=== PATIENT | male | born 1955 | race Caucasian/White ===

== ENCOUNTER 2017-07-04 11:32 | Inpatient (IN) | payer BC ==
[2017-07-04 11:50] LABS: Hematocrit 51.6 % (42.0-52.0); Mean Platelet Volume 8.2 fL (7.4-10.4); Red Blood Cell (RBC) Count 4.92 mill/uL (4.70-6.10); White Blood Cell (WBC) Count 5.2 thou/uL (4.8-10.8)
[2017-07-04 11:56] LABS: PTT 29.3 SEC (22.9-36.1); Prothrombin Time 15.2 SEC (12.0-14.7)
[2017-07-04 12:01] LABS: ALT (SGPT) 37 U/L (8-55); AST (SGOT) 27 U/L (5-34); Alkaline Phosphatase 92 U/L (40-150); Anion Gap 10 mmol/L (10-20); BUN (Urea Nitrogen) 14 mg/dL (8.4-25.7); Bilirubin, Total 1.5 mg/dL (0.2-1.2); Calc. Creatinine Clearance 0 mL/min (70-130); Calcium 8.6 mg/dL (7.8-10.44); Carbon Dioxide 20 mmol/L (22-29); Chloride 110 mmol/L (98-107); Estimated GFR-MDRD 78; Globulin 2.6 g/dL (2.4-3.5); Protein, Total 6.3 g/dL (6.0-8.3)
[2017-07-04 12:06] LABS: Troponin I Less than 0.010 ng/mL (< 0.028)
[2017-07-04 12:09] LABS: #Eosinphils 0.1 thou/uL (0.0-0.7); #Lymphocytes 1.6 thou/uL (1.20-3.40); #Monocytes 0.6 thou/uL (0.11-0.59); #Neutrophils 2.8 thou/uL (1.40-6.50); %Basophils 0.7 % (0.0-1.0); %Eosinophils 2.7 % (0.0-10.0); %Lymphocytes 30.6 % (21.0-51.0)
--- NOTE | 2017-07-04 12:43 | CT ---
CT HEAD NONCONTRAST: INDICATION: Weakness. Emergency exam. FINDINGS: There is no intracranial hemorrhage, mass, midline shift, or ventriculomegaly. IMPRESSION: No acute intracranial hemorrhage or mass effect. POS: JULIOH
[2017-07-04] MEDS ORDERED: Ondansetron ODT 4 MG TAB PO PRN (14:49)
[2017-07-04] MEDS ORDERED: Furosemide 20 MG/2 ML VIAL SLOW IVP SCH ×2 (15:00→15:15)
[2017-07-04 15:33] LABS: Magnesium 1.9 mg/dL (1.6-2.6); Phosphorus 2.6 mg/dL (2.3-4.7)
[2017-07-04 16:00] LABS: Troponin I Less than 0.010 ng/mL (< 0.028)
[2017-07-04 16:22] VITALS: BMI 30.1
--- NOTE | 2017-07-04 16:49 | RAD ---
PA AND LATERAL CHEST: 07/04/17 HISTORY: Dyspnea. New onset atrial fibrillation. COMPARISON: 07/28/15 exam. The heart size is borderline to minimally enlarged. There is some bibasilar interstitial lung change s seen slightly more confluent in the right base. IMPRESSION: Minimal cardiomegaly with some increased interstitial markings which are predominantly within the ba ses and greater in the right base. Although this could indicate some element of edema, it may repres ent atelectasis possibly with a developing infiltrate in the right lung base. POS: JULIOH
--- NOTE | 2017-07-04 17:49 | CT ---
CT ANGIO OF NECK PERFORMED WITH INTRAVENOUS CONTRAST ENHANCEMENT WITH 3D RECONSTRUCTIONS: 07/04/17 HISTORY: Slurred speech. COMPARISON: CT of the brain performed earlier today. There are bilateral pleural effusions identified. The lung apices are clear. thyroid gland is somew hat small. There is a questionable filling defect within the left jugular vein. This may be artifact ual related to uneven mixing which I would favor but if thrombus is suspected, ultrasound may be hel pful in assessment. On the right side, right common carotid artery, internal and external carotid arteries are unremarka ble. The internal carotid arteries are very tortuous in its course. No signs of any significant sten osis. The left side also shows tortuosity of internal and external carotid arteries, but no evidence for s tenosis. No signs of dissection. The vertebral arteries are codominant. Parotid and submandibular gland regions are unremarkable. A r etention cyst is noted within the left maxillary sinus. No jugular chain adenopathy is seen. IMPRESSION: 1. No evidence of any significant stenosis of either internal carotid artery. 2. Bilateral pleural effusions. 3. Questionable filling defect versus uneven mixing in the left internal jugular vein. If indic ated, ultrasound would be helpful in assessment for the possibility that this represents some throm bus. POS: [facility]
--- NOTE | 2017-07-04 18:22 | CT ---
CT ANGIO OF BRAIN PERFORMED WITH INTRAVENOUS CONTRAST ENHANCEMENT WITH 3D RECONSTRUCTIONS: 07/04/17 HISTORY: Patient has slurred speech. COMPARISON: CT angio of the neck done earlier as well as CT of the brain. Technically a satisfactory examination was obtained. The vertebral arteries are codominant. They for m a normal basilar artery and the posterior cerebral arteries are unremarkable. Anterior and middle cerebral arteries and their branches show no areas of stenosis or findings of th rombus. IMPRESSION: Unremarkable CT angio of head. POS: SAMANTHA
[2017-07-04 19:22] LABS: Troponin I Less than 0.010 ng/mL (< 0.028)
--- NOTE | 2017-07-04 21:01 | HP-2 ---
CODE STATUS: DNI. PRIMARY CARE PHYSICIAN: Dr. Batista. ATTENDING: Dr. Anthony. RESIDENT: Alpesh Abernathy M.D. HISTORIAN: Patient and . SPECIALIST: Patient's diamond die polisher is Dr. House in [place]. CHIEF COMPLAINT: Slurred speech, unequal pupils and weakness. HISTORY OF PRESENT ILLNESS: Mr. Dwight Dumont is a 61-year-old male with past medical history of AML, diagnosed in 2014, status post stem cell transplant and recent past medical history of atrial fibrillation diagnosed 6 days ago. The patient presents after waking up this morning with bilateral leg weakness and blurry vision. His who witnessed the episode stated that his eyes were moving back and forth in a random pattern and she knows that one pupil is bigger than the other, and that he was slurring his words. He denies any unilateral weakness in his extremities and she denied any facial droop. This lasted about 20 minutes and they called the ambulance and it was resolved before they got there. He states that for the last few weeks he has also had some chest discomfort and he saw a diamond die polisher on Thursday and he was diagnosed with atrial fibrillation and started on metoprolol and Eliquis. He has had shortness of breath for the last 3 days, paroxysmal nocturnal dyspnea and orthopnea as well. He has not had any lower extremity edema. PAST MEDICAL HISTORY: 1. 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 2. Atrial fibrillation. PAST SURGICAL HISTORY: 1. Right knee arthroscopy. 2. Left forearm fracture repair. 3. Tendon repair of the 5th digit. 4. Bone marrow transplant in 2014. ALLERGIES: No known drug allergies. MEDICATIONS: 1. Eliquis 5 mg b.i.d. 2. Metoprolol 25 mg b.i.d. 3. Unknown AML drug, will need to Med Rec. FAMILY HISTORY: Breast cancer on the maternal side and lung cancer on paternal side. SOCIAL HISTORY: Denies smoking and drug use and endorses alcohol use socially. REVIEW OF SYSTEMS: General: Positive for night sweats and fatigue. Denies fevers, chills, weight, appetite, sleep change. Eyes: Positive for blurry vision this morning. Denies eye pain. ENT: Positive for seasonal allergies. Denies any recent nasal congestion, rhinorrhea, sore throat. Respiratory: Positive for shortness of breath and exercise intolerance. Denies any cough, congestion. Gastrointestinal: Positive for nausea and vomiting. Denies diarrhea, constipation, abdominal pain , GI bleeding. Genitourinary: Denies incontinence, dysuria, polyuria, discharge. Skin: Denies rashes, lesions, jaundice, or itching. Musculoskeletal: Denies pain, tenderness, stiffness, swelling or arthritis. Neurologic: Positive for weakness. Denies numbness, syncope or seizures. Psychiatric: Denies any anxiety or depression. PHYSICAL EXAMINATION: VITAL SIGNS: Blood pressure 130/96, pulse 99, respiratory rate 16, T-max 97.6, pulse ox 96% on room air. Current weight is 102 kilograms. GENERAL: The patient is alert and oriented x4, no acute distress, well- developed, well-nourished, and appropriately interactive. EYES: The right pupil was slightly smaller than the left pupil. Both were reactive to light and accommodation. Extraocular muscles intact. No nystagmus. Conjunctivae within normal limits. ENT: Tympanic membranes are pearly ruffin without bulging or erythema. Nasal mucosa and oropharynx within normal limits. NECK: Supple, without lymphadenopathy or thyromegaly. CARDIOVASCULAR: Irregularly irregular rhythm with a rate of 99, no murmurs or gallops. Radial pulses and pedal pulses are equal and present. RESPIRATORY: Normal effort, no retractions. There are bibasilar rales present. SKIN: Warm and dry without cyanosis or lesions. ABDOMEN: Soft, nontender, bowel sounds x4. No masses or distention. EXTREMITIES: No clubbing, cyanosis or edema. MUSCULOSKELETAL: Structure and tone within normal limit. Muscle strength 5/5 in the upper and lower extremities. Full range of motion. NEUROLOGIC: No focal deficits. Sensation within normal limits. Cranial nerves II through XII intact. PSYCHIATRIC: Appropriate. LABORATORY DATA AND IMAGING: White blood cell count 5.2, hemoglobin 16.7, hematocrit 51, MCV 105, platelets 119. Sodium 136, potassium 4.0, chloride 110 , bicarbonate 20, BUN 14, creatinine 0.98, glucose 129, calcium 8.6, total protein 6.3, albumin 3.7, total bilirubin 1.5, AST 27, ALT 37, alkaline phosphatase 92. PT 15.2, PTT 29.31, INR 1.2. CK-MB 3.3, troponin less than 0.01. BNP was 688. EKG showed atrial fibrillation. Brain CT showed no acute intracranial hemorrhage or mass effect. ASSESSMENT AND PLAN: A 61-year-old male with past medical history of acute myelogenous leukemia who is in remission, who was recently diagnosed with atrial fibrillation who presented with blurry vision, weakness and slurring words. 1. Transient ischemic attack suspected. Admit to inpatient stroke, symptoms have resolved completely. No deficit. CT of the brain showed no intracranial findings. Order brain MRI, CT angiogram of the head and neck, echo, fasting lipid panel, BMP, CBC. Continue aspirin and Eliquis. Monitor symptoms. Check orthostatics. Consider consulting Neurology. 2. Possible new onset congestive heart failure: In the setting of newly diagnosed atrial fibrillation. Check echo and chest x-ray. Hold home metoprolol. BNP was 688. Troponins were negative. Cardiology has been consulted. 3. Acute myelogenous leukemia: In remission, status post stem cell transplant in 2014. Continue home medications. We will need to Med Rec. 4. Activity: ad yash. 5. Atrial fibrillation, rate controlled, new onset. Continue home medications , check TSH, magnesium, and phosphatase. 6. Deep venous thrombosis prophylaxis. Home Eliquis and sequential compression devices. 7. Diet: Heart healthy. 8. Code status, DNI. Disposition and length of hospital stay, 2 days. Symptomatic medication will be provided. History and physical exam as well as management discussed with Dr. Anthony. Patient seen and evaluated by me. I agree with reich portions of this history and physical. I left an additional note in the chart. The patient had a TIA. He has new A Fib and was recently started on metoprolol and Eliquis. 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 He has an echo pending and a cardiology consult. We are also checking an MRI/MRA. Jeffrey HELMS
[2017-07-04] MEDS: Apixaban 5 MG TAB PO SCH (21:58)
--- NOTE | 2017-07-04 22:05 | CON ---
DATE OF SERVICE: 07/04/2017 CARDIOLOGY CONSULTATION REASON FOR CONSULTATION: Stroke and atrial fibrillation. HISTORY OF PRESENT ILLNESS: Mr. Dumont is a very pleasant 61-year-old white gentleman, who comes to the hospital for evaluation of weakness, slurred speech and headache. He was found to have an equal pupils and high likelihood of having an acute CVA, so he was admitted. His blood pressure on admis yogi was 184/125, so nitro paste was administered and his blood pressure starts to get much better. He also was complaining of headache, vomiting and some vision changes as well as dizziness. He has also been having double vision and ringing in the ear. He was diagnosed with atrial fibrillation a bout 2 weeks ago. He was found to be in atrial fibrillation with RVR by his primary care physician, Dr. Batista. He noticed he was found to be in RVR, heart rate in the 140s, so he was seen by Cardiol linn, Dr. House and he elected to rate control with Toprol XL and he also was started on Eliquis f or stroke prophylaxis. His heart rate did come down to the 90s-100s and he has been tolerating the Eliquis without issues. He has not been missed doses and he is taking it twice a day. Currently on my evaluation, his symptoms are much better. Per 's report, he tells me that his speech is pre tty much back to normal. He is not having any more dizziness, double vision or ringing on the ear, no other issues. He is not complaining of any weakness either. PAST MEDICAL HISTORY: 1. Hypertension. 2. Recent diagnosis of atrial fibrillation. 3. 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 He is on a research protocol down in [facility]. 4. Gout. OUTPATIENT MEDICATIONS: Include: 1. Tribenzor 40/10/25 mg a day. 2. Indomethacin p.r.n. 3. Allopurinol 300 mg a day. 4. Cefotaxime. 5. Noxafil 100 mg 3 times a day. 6. Eliquis 5 mg b.i.d. 7. Metoprolol succinate 200 mg a day. 8. Crenolanib as his AML investigational therapy done at [facility]. ALLERGIES: No known drug allergies. FAMILY HISTORY: No early coronary artery disease. His son did have atrial fibrillation at the age of 18 and recently had an ablation. SOCIAL HISTORY: No alcohol, tobacco or drugs. PAST SURGICAL HISTORY: 1. Right knee arthroscopy. 2. Lipoma removal. 3. Right forearm surgery. 4. Right little finger surgery. 5. Right arm PICC line. REVIEW OF SYSTEMS: A 12-point review of systems was done and is all negative unless stated in the h istory of present illness. PHYSICAL EXAMINATION: VITAL SIGNS: Temperature 97.9, pulse 94, respiration rate 18, satting 95% on room air, blood pressu re 121/82. He is not orthostatic. GENERAL: Awake, alert, oriented x3, in no distress. HEENT: Normocephalic, atraumatic. NECK: Supple. LUNGS: Clear. CARDIOVASCULAR: S1, S2, no S3 or S4. Irregularly irregular. Heart rate in the 90s. No murmurs. ABDOMEN: Soft, positive bowel sounds. EXTREMITIES: No edema. SKIN: Warm and dry. LABORATORY WORK: Reviewed. CBC: White count of 5, hemoglobin of 16, hematocrit 51, platelet count of 119. Coags: INR of 1.2. Chemistry showed chloride 110, carbon dioxide of 20, normal sodium an d potassium. BUN and creatinine are normal, GFR 78, total bilirubin was 1.5 with normal AST, ALT an d alkaline phosphatase. BNP was 688. Troponin has been negative x3. TSH and free T4 are normal. Albumin of 2.6. CT angiogram of the head and neck are unremarkable. CT of the brain noncontrast showed no evidence of hemorrhage, no acute intracranial hemorrhage or ma ss effect. ASSESSMENT AND PLAN: 1. Acute cerebrovascular accident/transient ischemic attack. 2. Atrial fibrillation with rapid ventricular response. 3. Acute myeloid leukemia in remission on experimental drug crenolanib for AML; however, this drug has been marked for sometime now. 4. Hypertension. PLAN: 1. MRI of the brain awaiting to see Neurology. If Neurology agrees that this is a stroke and not c omplicated migraine. We will plan on continuing full anticoagulation. 2. As far as the atrial fibrillation is concerned if he is able to tolerate the Eliquis after the s troke. We will plan on doing a BEBETO cardioversion in the near future, not at this time given his rec ent stroke. We would wait at least a week before doing this. We will get an echocardiogram to asse ss LV function and valvular structures. 3. We will continue rate control for now. At this time, I am not clear if his experimental medicat ion would be a cautious of atrial fibrillation, there is certainly others like Nexavar that are in t he same family of medications that have the side effect of atrial fibrillation. We will try to get a hold of his hematology oncologist, Dr. Nayan Washington from [facility] and see if they have any e xperience in atrial fibrillation with this medication. He may need to be off of this. Thank you for letting us participate in the care of your patient. We will continue to follow.
[2017-07-05 05:09] LABS: #Eosinphils 0.1 thou/uL (0.0-0.7); #Lymphocytes 1.5 thou/uL (1.20-3.40); #Monocytes 0.6 thou/uL (0.11-0.59); #Neutrophils 2.3 thou/uL (1.40-6.50); %Basophils 0.5 % (0.0-1.0); %Eosinophils 3.1 % (0.0-10.0); %Monocytes 12.6 % (0.0-10.0); Hematocrit 48.4 % (42.0-52.0); Mean Platelet Volume 8.9 fL (7.4-10.4); Red Blood Cell (RBC) Count 4.62 mill/uL (4.70-6.10); White Blood Cell (WBC) Count 4.5 thou/uL (4.8-10.8)
[2017-07-05 05:18] LABS: Anion Gap 8 mmol/L (10-20); BUN (Urea Nitrogen) 17 mg/dL (8.4-25.7); Calc. Creatinine Clearance 88 mL/min (70-130); Calcium 8.3 mg/dL (7.8-10.44); Carbon Dioxide 29 mmol/L (22-29); Chloride 105 mmol/L (98-107); Cholesterol 76 mg/dl (< 200 Desired); Estimated GFR-MDRD 59; LDL Cholesterol, Calculated 41 mg/dL
--- NOTE | 2017-07-05 06:21 | PDOC.FM ---
- Subjective Subjective: Patient doing well this morning. Has continued to be asymptomatic, however his Right pupil is slightly larger than his left. He denies any weakness or deficits. States he is feeling well. - Objective MAR Reviewed: Yes Vital Signs & Weight: Vital Signs (12 hours) Temp Pulse Resp BP Pulse Ox 07/05/17 04:00 98.1 F 67 14 121/86 97 07/04/17 23:57 98.5 F 92 18 128/94 H 95 07/04/17 20:05 98.5 F 92 18 95 07/04/17 19:59 97.9 F 94 18 121/82 95 Weight Weight 97.522 kg I&O: 07/03/17 07/04/17 07/05/17 06:59 06:59 06:59 Intake Total 300 Balance 300 Result Diagrams: 07/05/17 04:15 07/05/17 04:15 Radiology Reviewed by me: Yes <Alpesh Abernathy - Last Filed: 07/05/17 07:49> - Objective Vital Signs & Weight: Vital Signs (12 hours) Temp Pulse Resp BP BP Pulse Ox 07/05/17 08:25 97.9 F 64 24 H 07/05/17 07:39 97.9 F 64 24 H 126/102 H 97 07/05/17 04:00 98.1 F 67 14 121/86 97 07/04/17 23:57 98.5 F 92 18 128/94 H 95 Weight Weight 215 lb I&O: 07/04/17 07/05/17 07/06/17 06:59 06:59 06:59 Intake Total 300 Balance 300 Result Diagrams: 07/05/17 04:15 07/05/17 04:15 <William Anthony - Last Filed: 07/05/17 10:07> Phys Exam - Physical Examination Constitutional: NAD HEENT: moist MMs, sclera anicteric Neck: no JVD, full ROM Respiratory: no wheezing, no rales, no rhonchi, clear to auscultation bilateral Cardiovascular: RRR, no significant murmur, no rub Gastrointestinal: soft, non-tender, no distention Musculoskeletal: no edema, pulses present Neurological: non-focal, normal sensation, moves all 4 limbs Psychiatric: normal affect, A&O x 3 <Alpesh Abernathy - Last Filed: 07/05/17 07:49> Dx/Plan (1) Transient ischemic attack Status: Acute (2) Atrial fibrillation with RVR Code(s): I48.91 - UNSPECIFIED ATRIAL FIBRILLATION Status: Acute (3) Hypertension Code(s): I10 - ESSENTIAL (PRIMARY) HYPERTENSION Status: Acute (4) AML (acute myelogenous leukemia) Code(s): C92.00 - ACUTE MYELOBLASTIC LEUKEMIA, NOT HAVING ACHIEVED REMISSION Status: Chronic - Plan Plan: 61 yo with PMH of AML, in remission on Crenolanib, who awoke morning of 07/05 with b/l leg weakness, unable to support self, slurring words, double vision Symptoms resolved within about 20 minutes. Recently diagnosed with A fib early that week, started on Eliquis and Metoprolol. Also had developed PND, orthopnea, and increased MCDONOUGH over last 3 days. No LE edema. 1) TIA: suspected -no deficits at this time, slightly unequal pupils on admission -CT brain negative, CTA of head and neck negative -Brain MRI pending, TTE pending -continuing Eliquis at this time -continue to monitor symptoms and VSs closely -consult neuro if brain MRI has any findings 2) Atrial Fibrillation: Currently rate controlled -Continue eliquis and metoprolol -Cardiology consulted -Echo pending to evaluate LV function and valvular structures -unsure if a fib could be related to crenolanib 3) HTN: continue home meds -monitoring VSs <Alpesh Abernathy - Last Filed: 07/05/17 07:49> Attending Addendum - Attending Addendum I personally evaluated the patient and discussed the management with Dr. Abernathy I agree with the History, Examination, Assessment and Plan documented above. <William Anthony - Last Filed: 07/05/17 10:07>
[2017-07-05] MEDS ORDERED: Metoprolol Tartrate 25 MG TAB PO SCH (09:00)
[2017-07-05] MEDS: Apixaban 5 MG TAB PO SCH (09:31)
[2017-07-05] MEDS: [UNRECOGNIZED DRUG - OTHER] PO SCH ×2 (09:38→14:04)
--- NOTE | 2017-07-05 11:52 | MRI ---
BRAIN MRI: CLINICAL HISTORY: Weakness and stroke, TIA. FINDINGS: There is multifocal restriction involving the left cerebellar hemisphere as well as the cerebellar v ermis compatible with multifocal acute infarctions. No mass effect, midline shift, or ventriculomeg kera. There is mild chronic microvascular ischemic disease. Prominent [id number] retention cyst is p resent within the left maxillary sinus partially imaged. No evidence of intracranial hemorrhage. IMPRESSION: Multifocal acute infarct involving the left cerebral hemisphere and cerebellar vermis, in a predomin ant superior cerebellar artery distribution. POS: SAMANTHA
--- NOTE | 2017-07-05 14:00 | PDOC.EVN ---
Event Note - Event Note Event Note: Discussed MRI results with Dr. Parra who suggested to continue baby ASA for 1 month, and reassess at that time along with continuing Eliquis exterminator for a- fib.
--- NOTE | 2017-07-05 15:20 | CON ---
DATE OF CONSULTATION: 07/05/2017 NEUROLOGY CONSULTATION CONSULTING PHYSICIAN: [facility]. IMPRESSION: 1. Vertebrobasilar transient ischemic attack. 2. History of acute myeloid leukemia with stem cell transplant. 3. Atrial fibrillation. PLAN: 1. Continue Eliquis. 2. Add aspirin 81 mg per day for the next 6 months. 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 He has recently undergone stem cell transpl ant for treatment of acute myelogenous leukemia. He recently started experiencing some fatigue and shortness of breath and was found to be in atrial fibrillation. He was started on Eliquis about 5 d ays ago. He was sitting in his chair when he started to feel strangely. He started experiencing so me extremely loud tinnitus in the right ear. This was associated with some headache in the opposite side of the head and then feeling of an inability to get his balance and stand himself up. His wif kristin noted that he was having some pretty prominent nystagmus. His speech became a bit slurred. An am bulance was called and he was brought to the emergency room, his symptoms resolved in about an hour and 45 minutes. He never had anything like this before. His CT angio of the head was unremarkable. He has not had any recurrent symptoms. PAST MEDICAL HISTORY: As listed above. ALLERGIES: None. SOCIAL HISTORY: No tobacco or alcohol use. FAMILY HISTORY: Noncontributory. REVIEW OF SYSTEMS: Unremarkable. PHYSICAL EXAMINATION: VITAL SIGNS: Blood pressure was 126/102, pulse 64, respirations 24, temperature 97.9. HEENT: Pupils equal and reactive. Conjunctivae clear. NEUROLOGIC: He is alert and appropriate. His speech is fluent and clear. Cranial nerves are inta ct and motor exam did not show any lateralized deficits. Sensation is intact. He could stand and w alk independently. LABORATORY STUDIES: Unremarkable CBC and coags. Chemistry panel was within normal limits. Total c holesterol was 76, LDL of 41 and HDL of 21. Thyroid levels were normal. SUMMARY: This is a middle-aged man, who had transient deficits consistent with vertebrobasilar insu fficiency. Unfortunately, his symptoms have resolved and may not show any visible sign of injury on MRI. Given that he had been on Eliquis for 4 days. I would keep him on some aspirin for the short term to reduce his risk of blood pressure, he will need to be monitored and addressed as necessary.
[2017-07-05 16:07] VITALS: BP 141/97; TEMP 98.3
--- NOTE | 2017-07-05 18:16 | PDOC.CTH ---
Cardiology Progress Note - Subjective He is doing well. He is back to normal. - Objective Vital Signs Temp Pulse Resp BP Pulse Ox 07/05/17 15:55 98.3 F 82 16 141/97 H 98 07/05/17 11:50 97.9 F 78 16 129/102 H 98 07/05/17 08:25 97.9 F 64 24 H 07/05/17 07:39 97.9 F 64 24 H 126/102 H 97 Weight 215 lb 07/04/17 07/05/17 07/06/17 06:59 06:59 06:59 Intake Total 300 Balance 300 - Physical Examination General/Neuro: alert & oriented x3, NAD Neck: no JVD present Lungs: unlabored respirations Heart: other: (irrge) Abdomen: NT/ND Extremities: other: (no edema.) - Telemetry Telemetry Rhythm: Afib HR 80's. - Labs Result Diagrams: 07/05/17 04:15 07/05/17 04:15 Troponin/CKMB CK-MB (CK-2) 3.7 ng/mL (0-6.6) 07/04/17 18:45 Troponin I Less than 0.010 ng/mL (< 0.028) 07/04/17 18:45 - Assessment/Plan 1. Afib, rate controlled 2. Acute CVA, thromboembolic 3. AML in remission on Crenolanib research study out of [place] PLAN: - Continue Patricia ANDERSON for rate control. - Will plan on seeing him back in 2 weeks and if still in afib will plan a BEBETO cardioversion at that time. - If he recurs with a repeat stroke he will need a candidate for Watchman or Lariat device.
--- NOTE | 2017-07-06 00:43 | DIS-2 ---
DATE OF ADMISSION: 07/04/2017 DATE OF DISCHARGE: 07/05/2017 RESIDENT: Alpesh Abernathy MD ADMITTING ATTENDING: William Anthony MD DISCHARGE ATTENDING: William Anthony MD CONSULTATIONS: 1. Cardiology on 07/04/2017, Hussein Diana MD 2. Neurology on 07/05/2017, Charanjit Parra MD IMAGIN. Brain CT on 07/04/2017. Impression: No acute intracranial hemorrhage or mass effect. 2. CT angiography of the neck with and without contrast on 07/04/2017. Impression: No evidence of any significant stenosis of either internal carotid artery, bilateral pleural effusions. 3. CT angio with contrast of the [place] of the head: Unremarkable CT angio of the head. 4. Brain MRI on 07/05/2017. 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 DISCHARGE MEDICATIONS: 1. Simvastatin 40 mg p.o. at bedtime. 2. Aspirin 81 mg p.o. daily and resume home medications. 3. Metoprolol tartrate 25 mg p.o. b.i.d. 4. Eliquis 5 mg p.o. b.i.d. 5. As well as multivitamins. DISCONTINUED MEDICATION: Lasix 20 mg slow IV push. HISTORY OF PRESENT ILLNESS/HOSPITAL COURSE: Mr. Dwight Dumont is a 61-year-old male with a past medic al history of acute myelogenous leukemia diagnosed in 2014, status post stem cell transplant and a r ecent past medical history of atrial fibrillation diagnosed 6 days ago, where he was started on Eliq uis and metoprolol. The patient states that after waking up on the morning of 07/04/2017, he had bl urry vision and bilateral leg weakness. His , who witnessed the episode, noticed that his eyes were moving back and forth in a random pattern. She also noticed that one pupil, the right, was big steven than the left and that he was slurring his words. He denies any unilateral weakness in his extr emities and denies any facial droop. These symptoms lasted about 20 minutes and they called an ambu krishna and he was brought to the hospital. He also says that for the past few weeks, he has had some chest discomfort and saw the Assurance Engineer on Thursday where he was diagnosed with atrial fibrillation and started on metoprolol and Eliquis. For the past 3 days, he has had paroxysmal nocturnal dyspne a and orthopnea as well as increased dyspnea on exertion. He has not had any lower extremity edema. The patient was admitted where he was worked up to rule out transient ischemic attack versus a com plex migraine. CT of the brain showed no intracranial findings; however, brain MRI showed multifoca l acute infarction involving the left cerebral hemisphere and cerebellar vermis. The patient was se en by Neurology as well as Cardiology and as the patient's symptoms had completely resolved, Neurolo gy and Cardiology cleared him with the plan to discharge him on continuing his Eliquis and one month of aspirin. It was recommended that he follow up with Cardiology to address his atrial fibrillatio n and possibly do a BEBETO cardioversion in 2 weeks and Neurology cleared him as well. The patient was ready for discharge on 07/05/2017 with the plan to follow up with the Neurologist, Dr. Parra; the Assurance Engineer, Dr. Diana; and his primary care provider, Dr. Batista all within the next week. [facility]. DISPOSITION: Guarded. LOCATION: Home. ACTIVITY: As tolerated. DIET: Heart-healthy diet. FOLLOWUP: With primary care provider, Dr. Batista; Assurance Engineer, Dr. Diana; and Neurologist, Dr. Aidee nails all within 7 days.
== END 2017-07-05 17:35 | disposition home or self-care (01) | DRG 65 ==
LOC: ERS 11:32 → 2SE 12:40
PROVIDERS: ADMIT Internal Medicine; ATTEND Internal Medicine
DX: I63.30 Cerebral infarction due to thrombosis of unspecified cerebral artery (principal); Z94.84 Stem cells transplant status; I42.9 Cardiomyopathy, unspecified; I50.9 Heart failure, unspecified; I11.0 Hypertensive heart disease with heart failure; R47.81 Slurred speech; Z85.6 Personal history of leukemia; I48.2 Chronic atrial fibrillation; Z66 Do not resuscitate; M10.9 Gout, unspecified; T45.1X5A Adverse effect of antineoplastic and immunosuppressive drugs, initial encounter; F17.210 Nicotine dependence, cigarettes, uncomplicated
CPT/HCPCS: 36415; 36416; 70450; 70496; 70498; 70551; 71020; 80048; 80053; 80061; 82553; 83735; 83880; 84100; 84439; 84443; 84484; 85025; 85610; 85730; 93005; 93306; G8996-GN-CH; G8997-GN-CH; J1940

== ENCOUNTER 2017-07-24 21:00 | Observation (INO) | payer BC ==
[2017-07-24 21:46] LABS: Prothrombin Time 17.5 SEC (12.0-14.7)
[2017-07-24 22:00] LABS: ALT (SGPT) 27 U/L (8-55); AST (SGOT) 26 U/L (5-34); Alkaline Phosphatase 104 U/L (40-150); Anion Gap 15 mmol/L (10-20); BUN (Urea Nitrogen) 25 mg/dL (8.4-25.7); Bilirubin, Total 2.2 mg/dL (0.2-1.2); Calc. Creatinine Clearance 0 mL/min (70-130); Calcium 9.2 mg/dL (7.8-10.44); Carbon Dioxide 24 mmol/L (22-29); Chloride 104 mmol/L (98-107); Estimated GFR-MDRD 40; Globulin 2.9 g/dL (2.4-3.5); Protein, Total 6.9 g/dL (6.0-8.3)
[2017-07-24 22:04] LABS: Troponin I 0.014 ng/mL (< 0.028)
--- NOTE | 2017-07-24 22:09 | RAD ---
ONE VIEW CHEST 07/24/17 HISTORY: Dyspnea. COMPARISON: 07/28/15. FINDINGS: Enlarged cardiac silhouette. The pulmonary vessels are slightly prominent. Interstitial edema is not ed. No pleural effusion. No pneumothorax. IMPRESSION: 1. Volume overload. 2. Cardiomegaly. POS: JUILO
[2017-07-25] MEDS ORDERED: Ondansetron ODT 4 MG TAB SL PRN (00:02)
[2017-07-25] MEDS ORDERED: Ondansetron HCl/PF 4 MG/2 ML Vial IVP PRN (00:02)
[2017-07-25 00:35] VITALS: BMI 29.7
[2017-07-25] MEDS ORDERED: Lidocaine Viscous Sol 2% 15 ml UD Cup SSP PRN (01:01)
[2017-07-25] MEDS ORDERED: valACYclovir HCl 1 GM TAB PO SCH (01:10)
[2017-07-25 03:04] VITALS: TEMP 98.5
[2017-07-25 05:58] LABS: Anion Gap 12 mmol/L (10-20); BUN (Urea Nitrogen) 24 mg/dL (8.4-25.7); Calc. Creatinine Clearance 71 mL/min (70-130); Calcium 8.8 mg/dL (7.8-10.44); Carbon Dioxide 23 mmol/L (22-29); Chloride 106 mmol/L (98-107); Estimated GFR-MDRD 47
[2017-07-25] MEDS: Acetaminophen 325 MG TAB PO PRN ×2 (07:27→11:03)
--- NOTE | 2017-07-25 08:04 | HP-2 ---
DATE OF ADMISSION: 07/25/2017 CODE STATUS: FULL. PRIMARY CARE PHYSICIAN: Darius Batista M.D. ATTENDING: William Anthony M.D. RESIDENT: Yolanda Stewart M.D. SPECIALIST: Dr. Diana with Cardiology. CHIEF COMPLAINT: Shortness of breath. HISTORY OF PRESENT ILLNESS: This is a 61-year-old male with past medical history of AML, CVA in [place] status post cardioversion yesterday who reports that he felt great after the cardioversion and [place] t home, started having episodes of shortness of breath over last couple of seconds. This happened 5 or 6 times in the past 10 minutes. He has been having these episodes for the past few weeks since his stroke, but they have increased in frequency since the cardioversion. He denies any chest pain or diaphoresis. He denies any palpitations or feeling his heart racing. PAST MEDICAL HISTORY: 1. AML status post stem cell transplant. 2. Shingles. 3. AFIB. 4. CVA 2 weeks ago. PAST SURGICAL HISTORY: Lipoma, left knee replacement, arm surgery, finger surgery. ALLERGIES: No known drug allergies. MEDICATIONS: 1. Lidocaine rinse. 2. Valtrex 1 gram t.i.d. 3. Eliquis 5 mg p.o. b.i.d. 4. Aspirin 81 mg daily. 5. Cefdinir 600 mg daily. 6. Flecainide 50 mg b.i.d. 7. Metoprolol 25 mg b.i.d. 8. Levocarnitine 500 mg daily. 9. Multivitamin. 10. CoQ10. 11. Folic acid. 12. Vitamin D3. FAMILY HISTORY: Mother with diabetes, cancer, CVA and DVTs. SOCIAL HISTORY: Denies tobacco use. Drinks alcohol two to three times a week. Denies drug use. REVIEW OF SYSTEMS: GENERAL: Denies fever, chills, or fatigue. EYES: Denies vision changes or eye pain. ENT: Denies rhinorrhea or sore throat. RESPIRATORY: Denies cough. Reports shortness of b reath. CARDIOVASCULAR: Denies chest pain, palpitations or edema. GASTROINTESTINAL: Denies nausea , vomiting, diarrhea or abdominal pain. GENITOURINARY: Denies incontinence or dysuria. SKIN: Den ies rashes or lesions. MUSCULOSKELETAL: Denies pain, tenderness or stiffness. NEUROLOGIC: Denies weakness or numbness. PSYCHIATRIC: Denies anxiety or depression. PHYSICAL EXAMINATION: VITAL SIGNS: Blood pressure 132/95, pulse 86, respiratory rate 20, temperature 98.7, pulse ox 100% on room air, and current weight 97.98 kilograms. GENERAL: Alert and oriented x3 in no acute distress, well-nourished, appropriately interactive. HEENT: Pupils are equal, round, and reactive to light. Extraocular muscles intact. Conjunctivae w ithin normal limits. ENT: Nasal mucosa and oropharynx within normal limits. NECK: Supple, no lymphadenopathy. CARDIOVASCULAR: Regular rate and rhythm. No murmurs or gallops, 2+ radial and pedal pulses. RESPIRATORY: Normal effort, no retractions, clear to auscultation bilaterally. SKIN: Warm and dry. No cyanosis. Positive lesions on the face along the right side of his lips an d cheek. Small papular herpes lesions. ABDOMEN: Soft and nontender to palpation. Normoactive bowel sounds. No mass or distention. EXTREMITIES: No clubbing, cyanosis or edema. MUSCULOSKELETAL: Structure and tone within normal limits. NEUROLOGIC: No focal deficits. Sensation within normal limits. GCS 15. PSYCHIATRIC: Appropriate. LABORATORY DATA AND IMAGING: Sodium 138, potassium 4.7, chloride 104, CO2 24, BUN 25, creatinine 1. 76, GFR 40, glucose 100, T. bilirubin 2.2, alkaline phosphatase 104, AST 26, ALT 27, and calcium 9.2 . PT 17.5 and INR 1.4. D-dimer 0.33, TSH 8.8052. Chest x-ray showed volume overload and cardiomeg kera. ASSESSMENT AND PLAN: This is a 61-year-old male who presents with: 1. Intermittent dyspnea likely secondary to paroxysmal atrial fibrillation. We will observe on tel e overnight to monitor heart rhythm. We will give oxygen as needed. We will contact Dr. Diana in the morning to notify him and determine need for further action. D-dimer and cardiac enzymes were n egative. 2. Acute kidney injury likely secondary to cardioversion versus dehydration. We will encourage p.o . intake. We will recheck in the morning. 3. Atrial fibrillation, status post cardioversion. We will monitor on tele. Continue Eliquis. 4. Elevated T. bili. No abnormal abdominal pain. We will check direct bilirubin. 5. Elevated TSH. We will check free T4. 6. Cerebrovascular accident 2 weeks ago. We will continue aspirin and unsure why patient is not on a statin. We will consider starting a statin. 7. Herpes zoster. Active herpes lesions on the right side of patient's face. We will continue Estrella trex and lidocaine rinse. 8. Acute myeloid leukemia, status post trip stem cell transplant, stable. 9. VTE prophylaxis, on Eliquis. DISPOSITION: Observation on tele. Symptomatic medications will be provided. History and physical exam as well as management discussed with Dr. James.
[2017-07-25 08:39] VITALS: BP 152/99
[2017-07-25] MEDS ORDERED: Metoprolol Tartrate 25 MG TAB PO SCH (09:00)
[2017-07-25] MEDS ORDERED: Cefdinir 300 MG CAP PO SCH (09:00)
[2017-07-25] MEDS ORDERED: Ascorbic Acid 500 mg Chewable Tablet PO SCH (09:00)
[2017-07-25] MEDS ORDERED: Apixaban 5 MG TAB PO SCH (09:00)
[2017-07-25] MEDS ORDERED: Carvedilol 6.25 MG TAB PO SCH (17:00)
--- NOTE | 2017-07-27 06:29 | DIS-2 ---
DATE OF ADMISSION: 07/24/2017 DATE OF DISCHARGE: 07/25/2017 LOCATION: [facility] in [place], [place]. RESIDENT PHYSICIAN: Dr. Jamaal Judge ADMITTING ATTENDING: Dr. William Anthony DISCHARGE ATTENDING: Dr. William Anthony CONSULTS: None. PROCEDURES: Chest x-ray done on 07/24/2017 showed evidence of volume overload and cardiomegaly. PRIMARY DIAGNOSIS: Congestive heart failure. SECONDARY DIAGNOSES: 1. Chronic kidney disease stage 3. 2. History of acute myelogenous leukemia, status post chemotherapy and stem cell transplant. DISCHARGE MEDICATIONS: 1. Eliquis 5 mg p.o. b.i.d. 2. Sorbate calcium bioflavonoid 500 mg/200 mg tablet 1 tab p.o. daily. 3. Aspirin 81 mg tab p.o. daily. 4. Carvedilol 6.25 mg p.o. b.i.d. 5. Cefdinir 600 mg p.o. daily. 6. Vitamin D3 5000 units p.o. daily. 7. Flecainide acetate 50 mg p.o. b.i.d. 8. Folic acid 0.8 mg p.o. daily. 9. Multivitamin 1 tab p.o. daily. 10. CoQ10 200 mg p.o. daily. 11. L-carnitine 500 mg p.o. daily. 12. Valacyclovir 1 tab 1000 mg 1 tab p.o. t.i.d. DISCONTINUED MEDICATIONS: Metoprolol tartrate 25 mg p.o. b.i.d. HISTORY OF PRESENT ILLNESS AND HOSPITAL COURSE: Dwight Dumont Jr. is a 61-year-old gentleman with a p ast medical history of acute myelogenous leukemia who was previously treated with Cetirizine kinase inhibitor for chemotherapy. He subsequently developed signs and symptoms of heart failure, but was most recently admitted prior to this ED visit for a transesophageal echo and a cardioversion for chr onic atrial fibrillation. The patient tolerated the procedure well and was discharged home; however , he later developed some increasing shortness of breath which he stated had been going on for quite some time, however, noted since the cardioversion the shortness of breath seemed to be becoming mo re frequent. Vitals on arrival to the ED, temperature was 98.2, pulse 87 beats per minute, blood pr essure 140/93, respirations 18, oxygen saturation 94% on room air. Of note, the patient's BUN was 2 4 and creatinine was 1.53 with an estimated GFR of 47 on admission with subsequent labs prior to dis charge showing a creatinine of 1.37 and a GFR of 53. His BNP on 07/25/2017 was 498, which was down from his prior visit on 07/04/2017 showing a value of 688.5. The transesophageal echo done the morn ing prior to his arrival in the emergency department showed a severely reduced systolic function wit h an estimated EF of 30-35%. Of note, the patient was not started on an LIZETTE inhibitor during his hospitalization secondary to his chronic kidney disease and what appeared to be an acute kidney injury on top of his chronic kidney disease. His metoprolol was switched to Coreg of an equivalent dose. He was instructed to follow u p with his resp therapist on Thursday after discharge. DISPOSITION: Stable. DISCHARGE INSTRUCTIONS: 1. Location: Home. 2. Diet: Heart healthy. 3. Activity: Ad yash. 4. Followup: Follow up with your resp therapist, Dr. Hussein Diana.
== END 2017-07-25 12:13 | disposition home or self-care (01) ==
LOC: ERS 21:00 → 2SW 23:11
PROVIDERS: ADMIT Internal Medicine; ATTEND Internal Medicine
DX: I50.9 Heart failure, unspecified (principal); N18.3 Chronic kidney disease, stage 3 (moderate); I48.91 Unspecified atrial fibrillation; Z79.01 Long term (current) use of anticoagulants; Z79.82 Long term (current) use of aspirin; Z79.899 Other long term (current) drug therapy; Z96.652 Presence of left artificial knee joint; Z94.84 Stem cells transplant status; Z98.890 Other specified postprocedural states; Z92.21 Personal history of antineoplastic chemotherapy; Z85.6 Personal history of leukemia; Z86.73 Personal history of transient ischemic attack (TIA), and cerebral infarction without residual deficits
CPT/HCPCS: 36415; 71010; 80048; 80053; 82248; 82553; 83880; 84439; 84443; 84484; 85014; 85018; 85049; 85379; 85610; 92960; 93005; 93312; G0378; J2704

== ENCOUNTER 2017-08-24 20:02 | Inpatient (IN) | payer BC ==
[2017-08-24 20:40] LABS: #Eosinphils 0.3 thou/uL (0.0-0.7); #Lymphocytes 2.2 thou/uL (1.20-3.40); #Monocytes 1.1 thou/uL (0.11-0.59); #Neutrophils 6.1 thou/uL (1.40-6.50); %Basophils 0.5 % (0.0-1.0); %Eosinophils 3.1 % (0.0-10.0); %Monocytes 11.2 % (0.0-10.0); Hematocrit 52.1 % (42.0-52.0); Mean Platelet Volume 7.9 fL (7.4-10.4); Red Blood Cell (RBC) Count 5.02 mill/uL (4.70-6.10); White Blood Cell (WBC) Count 9.8 thou/uL (4.8-10.8)
[2017-08-24 21:06] LABS: ALT (SGPT) 28 U/L (8-55); AST (SGOT) 32 U/L (5-34); Alkaline Phosphatase 88 U/L (40-150); Anion Gap 13 mmol/L (10-20); BUN (Urea Nitrogen) 15 mg/dL (8.4-25.7); Bilirubin, Total 0.8 mg/dL (0.2-1.2); CK (CPK) 206 U/L (30-200); Calc. Creatinine Clearance 0 mL/min (70-130); Calcium 8.9 mg/dL (7.8-10.44); Carbon Dioxide 23 mmol/L (22-29); Chloride 107 mmol/L (98-107); Estimated GFR-MDRD 61; Globulin 3.4 g/dL (2.4-3.5); Protein, Total 7.4 g/dL (6.0-8.3); Troponin I 0.077 ng/mL (< 0.028)
[2017-08-24 23:57] LABS: Troponin I 0.159 ng/mL (< 0.028)
[2017-08-25 02:36] LABS: Anion Gap 11 mmol/L (10-20); BUN (Urea Nitrogen) 13 mg/dL (8.4-25.7); Calc. Creatinine Clearance 96 mL/min (70-130); Calcium 8.5 mg/dL (7.8-10.44); Carbon Dioxide 24 mmol/L (22-29); Chloride 109 mmol/L (98-107); Estimated GFR-MDRD 68; Troponin I 0.123 ng/mL (< 0.028)
[2017-08-25 03:43] LABS: #Basophils 0.1 thou/uL (0.0-0.2); #Eosinphils 0.3 thou/uL (0.0-0.7); #Lymphocytes 2.1 thou/uL (1.20-3.40); #Neutrophils 4.3 thou/uL (1.40-6.50); %Eosinophils 3.3 % (0.0-10.0); %Lymphocytes 27.1 % (21.0-51.0); %Monocytes 13.2 % (0.0-10.0); Hematocrit 49.3 % (42.0-52.0); Mean Platelet Volume 7.6 fL (7.4-10.4); Red Blood Cell (RBC) Count 4.71 mill/uL (4.70-6.10); White Blood Cell (WBC) Count 7.8 thou/uL (4.8-10.8)
[2017-08-25 03:44] LABS: Macrocytosis SLIGHT = 6-15 cells (100X) (0-5/hpf)
[2017-08-25] MEDS ORDERED: Folic Acid 1 MG TAB PO SCH (09:00)
[2017-08-25] MEDS ORDERED: Apixaban 5 MG TAB PO SCH (09:00)
--- NOTE | 2017-08-25 10:19 | HP-2 ---
DATE OF ADMISSION: 08/25/2017 CODE STATUS: FULL. ATTENDING: Dr. Cedeno. RESIDENT: Dr. Jenny Cruz. HISTORIAN: Patient. SPECIALISTS: Cardiology, Dr. Diana. CHIEF COMPLAINT: Palpitations. HISTORY OF PRESENT ILLNESS: This is a 61-year-old male with a past medical history of recent CVA, at ria fibrillation, and CHF, who presents with palpitations after working on a ladder at [employer]. He s tated that he noticed his heart rate started increasing and he just overall felt funny. He reports t hat he wears a monitor and after feeling his palpitations, he placed his monitor back on and re portedly told him that he needed a shock. At that point, he came to the ER. He said that this felt different than when in the recent past he had atrial fibrillation. He, of note, in 06/2017 had a CVA and was found to have atrial fibrillation 3 days prior. He also, in 07/2017, had admission for new onset congestive heart failure. He was found to have an ejection fraction of 30%-35%. He also, arou nd that time, had a cardioversion for his atrial fibrillation. For this specific incident today, he denies chest pain, shortness of breath, and any other symptoms. He just says he overall felt funny. 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 PAST MEDICAL HISTORY: Systolic CHF with an ejection fraction of 30%-35%; CKD, stage 3; history of AM L, status post chemo, stem cell transplant, CVA, atrial fibrillation, and [place] Clements syndrome from s hingles, recent shingles infection. PAST SURGICAL HISTORY: Lipoma. ALLERGIES: No known drug allergies. MEDICATIONS: Eliquis, aspirin, Coreg, vitamin D, folic acid, levocarnitine, Centrum, CoQ10. FAMILY HISTORY: Noncontributory. SOCIAL HISTORY: Denies tobacco, alcohol, and drug use. REVIEW OF SYSTEMS: General: Denies fevers and chills. HEENT: Denies vision changes and nasal jamilah estion. Respiratory: Denies cough, congestion, shortness of breath. Cardiovascular: Denies chest pain. GI: Denies nausea and vomiting. Genitourinary: Denies incontinence or dysuria. Skin: Ricci es rashes or lesions. Musculoskeletal: Denies pain or tenderness. Neuro: Denies weakness or numbn ess. Psychiatric: Denies anxiety and depression. PHYSICAL EXAMINATION: VITAL SIGNS: Blood pressure 135-148/84-104. Pulse 64-129. Respiratory rate 15-20. T-max 98.4. Pu lse ox 97% on room air. Current weight 93.4 kilograms. GENERAL: Alert and oriented x4, in no apparent distress, appropriately interactive. HEENT: Pupils equal, round, and reactive to light and accommodation. Extraocular muscles intact. C onjunctivae within normal limits. ENT: Nasal mucosa within normal limits. Oropharynx within normal limits. NECK: Supple, no lymphadenopathy, no thyromegaly. CARDIOVASCULAR: Irregular. No murmurs, rubs, or gallops appreciated. Radial pulses 2+. Pedal puls es 2+. RESPIRATORY: Normal effort, no retractions, clear to auscultation bilaterally. SKIN: Warm and dry. ABDOMEN: Soft, nontender to palpation. No masses or distention. EXTREMITIES: No clubbing, cyanosis, or edema. MUSCULOSKELETAL: Structure within normal limits. NEUROLOGIC: No focal deficits. GCS 15. PSYCHIATRIC: Appropriate. LABORATORY DATA: CBC: White count 9.8, hemoglobin 17, hematocrit 52.1, and platelets 138. CMP: So dium 139, potassium 4.1, chloride 107, bicarbonate 23, BUN 15, creatinine 1.22, glucose 101. AST, AL T, alkaline phosphatase, 32, 28, 88. Calcium, total protein, albumin, 8.9, 7.4, 4.0. T-bili 0.8. T roponin 0.077, 0.159. EKG showed atrial flutter with 2:1 AV conduction. ASSESSMENT AND PLAN: A 61-year-old male with a past medical history of cerebrovascular accident in 1 secondary to atrial fibrillation, status post cardioversion; and congestive heart failure, rec ently diagnosed in 07/2017; presents with palpitations, admitted for atrial flutter. 1. Atrial flutter, 2:1 AV conduction. We will admit the patient to medical telemetry and observe on telemetry overnight. We will consult Dr. Diana, patient's flooring machine operator, in the morning. We will r estart him on his home medications of Eliquis and carvedilol and provide diltiazem 20 mg p.r.n. for h eart rate over 110. 2. Congestive heart failure. No signs of acute exacerbation. No signs of volume overload. We will restart the patient's home medications. 3. Elevated troponins. No active chest pain. No ST elevations or depressions or T-wave inversions on EKG. The patient is currently on Eliquis. No need to start therapeutic Lovenox at this time. DISPOSITION AND LENGTH OF HOSPITAL STAY: 2-3 days. Symptomatic medications will be provided. History and physical exam as well as management discussed with Dr. Cedeno.
[2017-08-25 10:28] LABS: Magnesium 2.3 mg/dL (1.6-2.6); Phosphorus 2.1 mg/dL (2.3-4.7)
[2017-08-25] MEDS ORDERED: Gabapentin 300 MG CAP PO SCH (10:45)
[2017-08-25] MEDS: Carvedilol 6.25 MG TAB PO SCH ×2 (10:57→16:39)
--- NOTE | 2017-08-25 12:28 | CON ---
CARDIOLOGY CONSULTATION NOTE DATE OF CONSULTATION: 08/25/2017 REASON FOR CONSULTATION: Atrial flutter. HISTORY OF PRESENT ILLNESS: Mr. Dumont is a pleasant 61-year-old white gentleman who [facility]. I first met him back in June when he was admitted for a stroke. He had r ecently been diagnosed with atrial fibrillation and was up to have rate controlled. We started him o n anticoagulation at that time and he has not had any more stroke since. He did receive a BEBETO cardio version about a month afterwards and had been in sinus ever since he remained on flecainide and Eliqu is. During that BEBETO, he was found to have an EF of 30% to 35%, so he was placed on LifeVest and was waiting to have a stress test in the next few days. He was at home, he was on the ladder nailing charis ething on the wall and felt sudden onset of palpitations, he decided to come down. As he put on his LifeVest as he was not wearing it at that time and the LifeVest was recommended to have shock, so he took it off, he put it back on, recommended that will shock again, so he called the company and they told him that it seems like the shocks were appropriate, so he decided to come into the hospital. In the ER, he was found to be in atrial flutter with 2:1 AV block. He was given a dose of diltiazem IV and was slowed down and is now in atrial fibrillation. PAST MEDICAL HISTORY: 1. Chronic systolic heart failure, EF of 30% to 35% on last evaluation. 2. History of AML, status post chemotherapy and stem cell transplantation. 3. CVA in the past secondary to atrial fibrillation. 4. 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 5. Recent shingles. PAST SURGICAL HISTORY: Lipoma removal. OUTPATIENT MEDICATIONS: Include; 1. Eliquis 5 mg p.o. b.i.d. 2. Aspirin 81 mg a day. 3. Coreg 3.125 mg b.i.d. 4. Vitamin D. 5. Folic acid. 6. Levocarnitine. 7. Centrum Silver. 8. CoQ10. 9. Flecainide; however, he says he stopped that recently. FAMILY HISTORY: Noncontributory. SOCIAL HISTORY: No alcohol, tobacco or drugs. REVIEW OF SYSTEMS: Twelve-point review of systems was done and is all negative unless stated in the history of present illness. PHYSICAL EXAMINATION: VITAL SIGNS: Temperature 97.2, pulse between 90-130, respiratory rate 16, satting 96% on room air an d blood pressure 120/96. GENERAL: Awake, alert and oriented x3, in no distress. HEENT: Normocephalic and atraumatic. NECK: Supple. LUNGS: Clear. CARDIOVASCULAR: S1 and S2, irregularly irregular. Heart rate in the 120s. No murmurs. ABDOMEN: Soft, otherwise. EXTREMITIES: Trace edema. SKIN: Warm and dry. LABORATORY DATA: Laboratory work was reviewed. CBC was reviewed. Chemistries were reviewed and wer e unremarkable. Troponins were indeterminate at 0.07, 0.15 and 0.12. Phosphorus 2.1, magnesium 2.3 and vitamin B12. Free T4 and TSH were normal. IMAGING DATA: EKG was reviewed. ASSESSMENT AND PLAN: 1. Atrial fibrillation/atrial flutter. He has recurrence despite cardioversion and placing on antia rrhythmics. We will plan on calling Electrophysiology for consideration of an atrial flutter ablatio n and see what the recommendation will be for ongoing therapies for his atrial fibrillation. 2. Continue Eliquis for stroke prophylaxis. 3. Chronic systolic heart failure. Not an issue at this time. We will reevaluate echo once he has been in sinus some time. He should continue to wear the LifeVest for now. Thank you for letting us to participate in the care of your patient. We will follow.
--- NOTE | 2017-08-25 13:22 | CON ---
DATE OF CONSULTATION: 08/25/2017 REASON FOR EVALUATION: Atrial flutter and atrial fibrillation. PHYSICIAN REQUESTING CONSULTATION: Hussein Diana M.D. HISTORY OF PRESENT ILLNESS: Dwight Dumont is a very pleasant 61-year-old gentleman. He has a history of atrial fibrillation which is fairly recently diagnosed. He was found to be in persistent atrial f ibrillation just recently. He was started on anticoagulants and coincidentally he actually developed a small stroke the same day that the anticoagulation was initiated. He had not undergone cardiovers ion or any other maneuver in an attempt to restore sinus rhythm at that time. He was left on the ant icoagulant. He then underwent BEBETO and the echo showed no evidence of a thrombus in his appendage. H e underwent cardioversion, the BEBETO did however show moderate LV dysfunction with an ejection fraction of 30-35%. This was an unexpected finding. He had been on flecainide and this was stopped immediat aleisha upon determining the evidence of his LV dysfunction. He stayed in sinus rhythm since that time a nd actually felt much better, but then had recurrence of a rapid palpitation yesterday. He was admit christos to [facility], was in 2:1 atrial flutter, which then quickly degenerated into atrial fib rillation. He is back into atrial fibrillation now. Because of the recurrence of the atrial fibrill ation the fact that he had a stroke recently and his age, I was asked to see him for consideration of ablative therapy. Moreover because of his LV dysfunction which could be tachycardia mediated, I was asked to be fairly aggressive in treating this. CURRENT MEDICATIONS: He is on Eliquis b.i.d. taken faithfully without missing a dose. He has been o n flecainide, but this has been stopped. He is not on antiarrhythmic at this point, he is on heart f ailure medications which were initiated when his LV dysfunction was documented. FAMILY HISTORY: Significant for heart disease and hypertension. SOCIAL HISTORY: The patient does not smoke, drink heavily or use illicit drugs. REVIEW OF SYSTEMS: CONSTITUTIONAL: No fever, chills, night sweats, or other constitutional findings. HEENT: No change in vision or hearing. NEUROLOGIC: No TIAs, strokes or seizures. PULMONARY: No reactive airway disease, obstructive lung disease, or recurrent pneumonias. GASTROINTESTINAL: No acid peptic disease, melena, or hematochezia. GENITOURINARY: No frequency or dysuria. CARDIOVASCULAR: No claudication. ENDOCRINE: No diabetes or thyroid dysfunction. HEMATOLOGIC: No history of blood dyscrasias. MUSCULOSKELETAL: No arthritis, arthralgias or gout. PSYCHIATRIC: No depression or anxiety. DERMATOLOGIC: No rashes or skin cancer. AUTOIMMUNE: No autoimmune disease. PHYSICAL EXAMINATION: VITAL SIGNS: Blood pressure 130/70, pulse is 80-90 and irregular, respirations 18. GENERAL: This is a very healthy appearing gentleman in no acute distress. HEENT: Extraocular muscles are intact. Oropharynx is moist. NECK: Supple, no JVD. HEART: Demonstrates an irregular rate, normal S1, S2. LUNGS: Showed diminished breath sounds. ABDOMEN: Soft. EXTREMITIES: Without edema. SKIN: Warm and dry. NEUROLOGIC: Exam nonfocal. LABORATORY AND X-RAY FINDINGS: Electrocardiogram demonstrates atrial flutter with 2:1 conduction. Q RS is narrow. MEDICAL DECISION MAKING: I had a 20-minute discussion with Mr. Dumont and his family. He has a fairl y complicated history. From a heart standpoint, he has recently diagnosed atrial fibrillation and un fortunately suffered a stroke with some residual neurologic deficit in his left upper extremity. Thi s happened coinciding with the initiation of anticoagulation therapy. He has a history of a cardiomy opathy which is newly diagnosed and certainly could be tachycardia mediated. 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 He is 2 years in remission and has a good prognosis from that standpoint. His family is trying to determine whether he ever received an Adriamycin during his chemotherapy. I do think i t would be of benefit from restoring sinus rhythm, the only practical way of doing that at this point would be ablative therapy. Because of his history of the stroke, his CHADS-VASc score is very high and I think that this may involve appendage isolation. If appendage isolation were done, I would ursula arpan recommend mechanical closure of the appendage if that were the only way to maintain sinus rhythm . That is the best chance of preventing strokes in the future and also preventing worsening of his L V function. IMPRESSION: 1. Atrial fibrillation, persistent, failing pharmacologic suppression and cardioversion. 2. Recent cerebrovascular accident, probably cardioembolic. 3. History of acute myelogenous leukemia, currently in remission. He is status post stem cell trans plant. 4. Left ventricular dysfunction, newly diagnosed, possibly tachycardia mediated. RECOMMENDATIONS: Proceed with ablation as soon as possible. This may include appendage isolation.
[2017-08-25 16:33] VITALS: TEMP 98.3
[2017-08-25 16:41] VITALS: BP 102/80
[2017-08-25] MEDS ORDERED: Carvedilol 6.25 MG TAB PO SCH ×2 (18:07→18:30)
[2017-08-25] MEDS: Gabapentin 300 MG CAP PO SCH (18:20)
--- NOTE | 2017-08-26 04:26 | DIS-2 ---
DATE OF ADMISSION: 08/25/2017 DATE OF DISCHARGE: 08/25/2017 ADMITTING ATTENDING: Roselyn Cedeno M.D. DISCHARGE ATTENDING: Roselyn Cedeno M.D. RESIDENT: Jack Hollis M.D. CONSULTATIONS: 1. Dr. Hussein Diana-Cardiology. 2. Dr. Getachew Barboza-Electrophysiology. PERTINENT LABORATORY FINDINGS: Troponin at the time of admission 0.07 trended up to 0.159 and down to 0.123, likely due to demand ischemia, ferritin 1401. RADIOLOGY STUDIES: None. PROCEDURES: None. PRIMARY DIAGNOSES: 1. Atrial fibrillation/atrial flutter with rapid ventricular response. 2. Demand ischemia. SECONDARY DIAGNOSES: 1. Heart failure with reduced ejection fraction without acute exacerbation. 2. History of recent cerebrovascular accident. 3. 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 4. Chronic kidney disease stage 3. 5. History of acute myelogenous leukemia, status post chemotherapy and stem cell transplantation. DISCHARGE MEDICATIONS: 1. Carvedilol 12.5 mg p.o. b.i.d. 2. Ascorbate calcium/bioflavonoid 500/200 mg 1 tab daily. 3. Gabapentin 300 mg q.i.d. 4. L-carnitine 500 mg daily. 5. Multivitamin 1 tab daily. 6. Coenzyme Q10 200 mg daily. 7. Aspirin 81 mg daily. 8. Vitamin D3 5000 units daily. 9. Folic acid 0.4 mg daily. 10. Eliquis 5 mg p.o. b.i.d., DISCONTINUED MEDICATIONS: 1. Carvedilol 6.25 mg b.i.d. HISTORY OF PRESENT ILLNESS AND HOSPITAL COURSE: Mr. Dumont is a 61-year-old male with a past medical history of recent CVA, atrial fibrillation and heart failure with reduced ejection fraction. He presented with a chief complaint of palpitations that began while he was working. He states he was not wearing his LifeVest at that time. However, when he places LifeVest on the device, I advised him to seek medical attention. He called the [employer] support who ran diagnostics on the device and stated that the device was functioning properly and he should seek medical attention. He came to the ER and found to have mildly elevated troponins in the indeterminate range, likely due to demand ischemia. Dr. Hussein Diana was consulted for recommendations. He subsequently consulted Dr. Getachew Barboza, who has scheduled Mr. Dumont for an ablation in [place] on 08/28/2017. Initially, the patient was treated with as needed diltiazem injections for rate control. However, on the afternoon of discharge Dr. Diana felt that the patient could go home with an elevated rates and an increase in his oral medication. The patient was provided with the increased dose in his carvedilol prior to discharge as instructed to go to his pharmacy first thing in the morning to parts picker the medicine and continue the carvedilol. Vital signs with exception of his pulse were normal. At time of discharge, his pulse was tachycardic in the 120s to 130s. DISPOSITION: He was discharged home in stable condition. DISCHARGE INSTRUCTIONS: 1. Activity as tolerated. 2. Diet: Heart healthy, low sodium. 3. Location: Home. 4. Followup: The patient was instructed to follow up with Dr. Barboza in [place] on Thursday for ablation. He was instructed to follow up with his primary care physician within 1 week of discharge. He was also instructed to call Dr. Diana's office to schedule a followup visit. 5. Less than 30 minutes were spent on this discharge including providing discharge materials, coordinating discharge, and provided patient education. SCOOTER
[2017-08-26] MEDS ORDERED: Gabapentin 300 MG CAP PO SCH (09:00)
[2017-08-26 15:22] LABS: Folate,Hemolysate 573.6 ng/mL (Not Estab.); Hematocrit 49.6 % (37.5-51.0); RBC Folate Test Component 1156 ng/mL (>498)
--- NOTE | 2017-08-27 18:18 | PDOC.EVN ---
Event Note - Event Note Event Note: Patient seen and examined on 08/25/17. History, exam, assessment and plan reviewed with resident- Dr. Cruz and agree with resident's documentation. Briefly this is a 61 year old male with h/o recent CVA, A-fib s/p cardioversion 07/2017, and sCHF presents c/o palpitations that started earlier that day while working and felt funny. Denies any chest pain, SOB, orthopnea, edema. In ER noted to be in A-flutter with 2:1 conduction and at times A-fib with RVR. Troponins indeterminate x 3. Home medications of beta adalgisa and eliquis started. Cardiology and EP consulted and arrangements being made for ablation. Beta adalgisa dose adjusted and stable for discharged per cardiology with follow- up for ablation on Thursday.
== END 2017-08-25 19:15 | disposition home or self-care (01) | DRG 309 ==
LOC: ERS 20:02 → 2NO 21:50
PROVIDERS: ADMIT Family Medicine; ATTEND Family Medicine
DX: I48.1 Persistent atrial fibrillation (principal); I13.0 Hypertensive heart and chronic kidney disease with heart failure and stage 1 through stage 4 chronic kidney disease, or unspecified chronic kidney disease; I24.8 Other forms of acute ischemic heart disease; Z94.84 Stem cells transplant status; I50.22 Chronic systolic (congestive) heart failure; B02.21 Postherpetic geniculate ganglionitis; C92.01 Acute myeloblastic leukemia, in remission; I48.92 Unspecified atrial flutter; N18.3 Chronic kidney disease, stage 3 (moderate); Z86.73 Personal history of transient ischemic attack (TIA), and cerebral infarction without residual deficits; Z92.21 Personal history of antineoplastic chemotherapy; Z79.01 Long term (current) use of anticoagulants; Z79.82 Long term (current) use of aspirin
CPT/HCPCS: 36415; 80048; 80053; 82550; 82553; 82607; 82728; 82747; 83540; 83550; 83735; 84100; 84439; 84443; 84484; 85025; 93005; 96361; 96374; 96376

== ENCOUNTER 2021-11-19 10:13 | Outpatient (CLI) | payer BC ==
[2021-11-19 12:16] LABS: #Eosinphils 0.1 10x3/uL (0.0-0.5); #Monocytes 0.7 10x3/uL (0.0-1.1); #Neutrophils 2.4 10x3/uL (1.5-8.4); %Basophils 0.6 % (0.0-2.0); %Eosinophils 2.6 % (0.0-6.0); %Lymphocytes 30.8 % (18.0-47.0); %Monocytes 14.1 % (0.0-10.0); %Neutrophils 51.7 % (40.0-75.0); Hemoglobin 18.4 g/dL (13.5-17.5); Mean Corpuscular HGB CONC 34.9 g/dL (32.0-36.0); Mean Corpuscular Hemoglobin 33.8 pg (27.0-33.0); Mean Corpuscular Volume 96.9 fl (81.2-95.1); Mean Platelet Volume 10.2 fl (7.4-10.4); Platelet Count 145 10x3/uL (150-450); RBC Distribution Width 13.2 % (11.5-14.5); Red Blood Cell (RBC) Count 5.44 10x6/uL (4.32-5.72); White Blood Cell (WBC) Count 4.7 10x3/uL (3.5-10.5)
[2021-11-19 12:28] LABS: ALT (SGPT) 25 U/L (8-55); AST (SGOT) 26 U/L (5-34); Albumin 4.2 g/dL (3.4-4.8); Alkaline Phosphatase 55 U/L (40-110); Anion Gap 14 mmol/L (10-20); BUN (Urea Nitrogen) 19 mg/dL (8.4-25.7); Bilirubin, Total 1.5 mg/dL (0.2-1.2); Calc. Creatinine Clearance 0 mL/min (70-130); Calcium 9.3 mg/dL (7.8-10.44); Carbon Dioxide 23 mmol/L (23-31); Chloride 107 mmol/L (98-107); Globulin 2.7 g/dL (2.4-3.5); Glucose 111 mg/dL (80-115); Potassium 4.6 mmol/L (3.5-5.1); Protein, Total 6.9 g/dL (5.8-8.1); Sodium 139 mmol/L (136-145)
[2021-11-19 21:50] LABS: SARS-CoV-2 PCR by NAA Not Detected (NotDetected)
== END 2021-11-19 10:14 | disposition home or self-care (01) ==
LOC: LABBT 10:13
PROVIDERS: ATTEND Internal Medicine Cardiovascular Disease
DX: Z01.812 Encounter for preprocedural laboratory examination (principal); I48.91 Unspecified atrial fibrillation; Z20.822 Contact with and (suspected) exposure to COVID-19
CPT/HCPCS: 80053; 85025; U0003; U0005

== ENCOUNTER 2025-08-29 09:58 | Day surgery (SDC) | payer MEDICARE, BC ==
[2025-08-28 11:41] VITALS: BMI 34.8
[2025-08-29] MEDS ORDERED: PROPOFOL 200 MG/20 ML VIAL ONE (12:17)
[2025-08-29] MEDS ORDERED: Lidocaine 1% PF 5 ML VIAL ONE (12:17)
== END 2025-08-29 12:37 | disposition home or self-care (01) ==
LOC: SDC 09:58
PROVIDERS: ATTEND Internal Medicine Cardiovascular Disease
PROC: 5A2204Z Restoration of Cardiac Rhythm, Single (ICD-10-PCS; principal; 2025-08-29)
DX: I48.0 Paroxysmal atrial fibrillation (principal); Z96.653 Presence of artificial knee joint, bilateral; Z79.01 Long term (current) use of anticoagulants
CPT/HCPCS: 92960; J2704